=== PATIENT | male | born 1960 | race Two or more races ===

== ENCOUNTER 2020-06-10 23:34 | Emergency (ER) | payer OTHER ==
[~2020-06-10] VITALS: Ht 182.9 cm; Wt 98.3 kg
[2020-06-10 23:51] LABS: BASOPHILS # (AUTO) 0.06 x10^3/uL (0-0.1); BASOPHILS % (AUTO) 1 % (0-1); EOSINOPHILS # (AUTO) 0.21 x10^3/uL (0-0.4); EOSINOPHILS % (AUTO) 2 % (1-7); LYMPHOCYTES # (AUTO) 3.17 x10^3/uL (1-3.4); LYMPHOCYTES % (AUTO) 27 % (22-44); MD NO; MEAN CORPUSCULAR HEMOGLOBIN 30.9 pg (27.5-34.5); MEAN PLATELET VOLUME 10.1 fL (7.4-10.4); MONOCYTES # (AUTO) 0.99 x10^3/uL (0.2-0.8); MONOCYTES % (AUTO) 8 % (2-9); NEUTROPHILS # (AUTO) 7.49 x10^3/uL (1.8-6.8); NEUTROPHILS % (AUTO) 63 % (42-75); PLATELET COUNT 102 x10^3/uL (130-400)
[2020-06-10] MEDS ORDERED: LEVOTHYROXINE (23:51)
[2020-06-10] MEDS ORDERED: FURO40TA6 PO (23:51)
[2020-06-10] MEDS ORDERED: METF500T17 PO (23:51)
[2020-06-10] MEDS ORDERED: MAGNESIUM PO (23:51)
[2020-06-10] MEDS ORDERED: SPIR100T4 PO (23:51)
--- NOTE | 2020-06-10 23:52 | NUR ---
BIB [facility] W CO SUBSTERNAL CHEST PAIN, DIZZINESS, AND SOB X APPROX ONE HOUR. FOUND TO BE HYPOTENSIVE AND EKG WITH INFERIOR ST ELEVATION ON SCENE. CALLED A STEMI PREALERT LUBE ATTENDANT. GIVEN 324 MG ASA AND 100ML NS. ON ARRIVAL, PT SITTING UP, AWAKE/ALERT AND TALKATIVE. REPORTS 8/10 SUBSTERNAL CHEST PAIN BUT IMPROVEMENT IN DIZZINESS. EKG COMPLETED UPON ARRIVAL, TIME 2337. HYPOTENSIVE, 1L NS INFUSING. PADS PLACED. 2PIV. PT CHANGED TO GOWN AND BELONGINGS, INCLUDING ONE BLACK WATCH, IN BELONGINGS BAG. AWAITING CARDIOLOGY CONSULT/ TRANSPORT TO SEAT PACK INSPECTOR
[2020-06-11] MEDS ORDERED: SODIUM CHLORIDE 0.9% 1,000ML IVBOLUS ONE
[2020-06-11 00:02] LABS: INTERNATIONAL NORMALIZED RATIO 1.09 (0.93-1.1); PROTHROMBIN TIME 11.2 Seconds (9.6-11.5)
--- NOTE | 2020-06-11 00:02 | NUR ---
COVID SWAB COLLECTED AND WALKED TO LAB
[2020-06-11] MEDS ORDERED: LIDOCAINE 1%, 20ML ONE (00:04)
[2020-06-11] MEDS ORDERED: BIVALIRUDIN 250 MG ONE (00:04)
[2020-06-11] MEDS ORDERED: MIDAZOLAM 1 MG/ML, 5ML ONE (00:04)
[2020-06-11] MEDS ORDERED: FENTANYL PF 100 MCG/2ML ONE (00:04)
[2020-06-11] MEDS ORDERED: TICAGRELOR 90 MG TABLET ONE (00:04)
[2020-06-11 00:06] LABS: TROPONIN I 0.025 ng/mL (0.000-0.045)
[2020-06-11 00:08] VITALS: BP 71/33
--- NOTE | 2020-06-11 00:24 | NUR ---
DR WELCH TO BEDSIDE TO DISCUSS CATH. PT REFUSING AT THIS TIME, STATES "I FEEL FINE. I CAN JUST WALK OUT". PT EDUCATED TO RISKS OF AMA INCLUDING AND AGREES TO STAY.
[2020-06-11] MEDS ORDERED: THIAMINE 200 MG in SODIUM CHLORIDE 0.9% 50 ML IV ONE ×2 (01:00→01:28)
[2020-06-11] MEDS ORDERED: SODIUM CHLORIDE 0.9% 1,000 ML IV SCH ×2 (01:00→02:00)
--- NOTE | 2020-06-11 01:02 | NUR ---
PT DC'D OWN IV. NOW SPEAKING WITH ERP REGARDING WANTING TO LEAVE. PT REFUSING CARE, "I DON'T NEED TO BE HERE. I FEEL FINE". PT REMAINS HYPOTENSIVE.
--- NOTE | 2020-06-11 01:14 | NUR ---
PT STATES "LOOK, YOU SEEM GOOD AT YOUR JOB, BUT I'VE BEEN LIVING FOR A LONG TIME AND I THINK I CAN JUST GO HOME AND SLEEP THIS OFF. I'LL BE FINE. I DON'T NEED YOUR HELP". PT A&OX4, THOUGH DOES NEED SOME REDIRECTION TO MAINTAIN CONVERSATION. SBP 70 AT THIS TIME. PT EDUCATED REGARDING DANGERS OF HYPOTENSION INCLUDING . WITH ENCOURAGEMENT, PT AGREES TO REMAIN IN ED FOR IVF AND IMPROVEMENT IN BP. IVF INFUSING WHEN LINE NOTED TO HAVE INFILTRATED. FARRUKH Bradshaw RN AT BEDSIDE TO ATTEMPT ADDITIONAL PIV ACCESS. PT ADAMANTLY REFUSING PIV OFFERED BY TRISTAN CHADWICK. EGG SMELLER & ERP UPDATED TO PT NON-COMPLIANCE.
--- NOTE | 2020-06-11 01:25 | NUR ---
pt continues to refuse any interventions, aware that with his blood pressure this low he is at risk to .
[2020-06-11] MEDS ORDERED: ONDANSETRON 2MG/ML, 2ML IVPush PRN ×2 (01:30→02:00)
[2020-06-11] MEDS ORDERED: ACETAMINOPHEN 650 MG/20.3 ML UDC PO PRN ×2 (01:30→02:00)
[2020-06-11] MEDS ORDERED: morphine SULFATE 10 MG/ML, 1ML IV PRN ×2 (01:30→02:00)
--- NOTE | 2020-06-11 01:39 | NUR ---
pt signs ama form at this time, multiple staff members have discussed that leaving can most certainly result in .
--- NOTE | 2020-06-11 01:41 | NUR ---
Pt ambulating in hallway, reamins aa and o times 4, walks out door, continue to refuse to stay
--- NOTE | 2020-06-11 01:42 | NUR ---
This RN to bedside to attempt conversation with pt r/t risks of leaving AMA with active STEMI. Pt a&o x4, calm/cooperative, answering questions appropriately. Pt verbalizes understanding of STEMI and strong possibility of morbiity/mortality r/t STEMI without tx. Pt states, "I just want to go home and get a good night sleep. My heart is fine and is going to be fine tomorrow." Multiple more attempts by this RN to explain potential mortality. Pt continues to verbalize understanding. Verbalizes that he will return to ED with worsening sx. , primary RN, fire extinguisher charger also attempted similar conversation with same outcome. All IVs removed. Pt signed AMA paperwork.
[2020-06-11] MEDS ORDERED: INSULIN LISPRO 100 UNITS/ML, PEN SQ-INSULIN SCH ×2 (07:00)
[2020-06-12] MEDS ORDERED: ASPIRIN 325 MG TABLET EC PO SCH ×2 (06:00)
== END 2020-06-11 01:53 | disposition other institution (70) ==
LOC: ED 06-11 00:30 → UNDOADMIN 06-11 00:45 → EDIP 06-11 00:45 → ED 06-11 01:53
DX: I21.3 ST elevation (STEMI) myocardial infarction of unspecified site (principal); I95.9 Hypotension, unspecified; Z20.828 Contact with and (suspected) exposure to other viral communicable diseases; J44.9 Chronic obstructive pulmonary disease, unspecified
CPT/HCPCS: 36415; 71045; 80047; 84484; 85025; 85610; 85730; 87635; 93005; 99291; J0583; J2250; J3010